=== PATIENT | female | born 1985 | race Caucasian/White ===

== ENCOUNTER 2017-02-01 16:29 | Emergency (ER) | payer BC ==
[~2017-02-01 16:29] MED LIST: ALLERCLEAR10 MG; CLEOCIN100 MG/SUP VG; FLONASE 0.05% N16 G1; HYDROCHLOROTHIA25 MG PO; MACROBID100 M1; MACROBID100 M1 PO; NECON PO
[2017-02-04 08:23] LABS: CHLAMYDIA TRACH Not Detected (Not Detected); N GONOR Not Detected (Not Detected)
== END 2017-02-01 17:17 | disposition home or self-care (01) ==
LOC: SED 16:29
PROVIDERS: Nurse Practitioner
DX: J06.9 Acute upper respiratory infection, unspecified (principal); B37.3 Candidiasis of vulva and vagina; I10 Essential (primary) hypertension; Z88.0 Allergy status to penicillin
CPT/HCPCS: 87210; 87491; 87591; 87808; 87905; 99284